=== PATIENT | male | born 1975 | race Caucasian/White ===

== ENCOUNTER 2018-06-02 19:45 | Emergency (ER) | payer OTHER ==
[~2018-06-02] VITALS: Ht 165.1 cm; Wt 106.6 kg
[~2018-06-02 19:45] MED LIST: CEPH500 PO; CIPR500 PO; CYCL10 PO; DIVA500EC PO; DIVA500ER PO; HYDACE5 PO; MUSCLE RELAXER; Naprosyn500 MG PO; Norco 5-325 Ta1 EACH PO; Percocet 5-3251 EACH PO; RXHYDACE PO; TOBR.3OPSO OD; Valium5 MG PO
== END 2018-06-02 21:14 | disposition short-term general hospital (02) ==
LOC: ER 19:45
DX: M54.5 Low back pain (principal); G89.29 Other chronic pain; F31.9 Bipolar disorder, unspecified; J45.909 Unspecified asthma, uncomplicated; Z87.442 Personal history of urinary calculi
CPT/HCPCS: 96372; 99284-25; J1885